=== PATIENT | female | born 1985 | race Caucasian/White ===

== ENCOUNTER 2020-02-06 11:38 | Inpatient (IN) | payer MEDICAID ==
[~2020-02-06] VITALS: Ht 167.6 cm; Wt 55.0 kg
[2020-02-06] MEDS ORDERED: POLYETHYLENE GLYCOL 17 GM PACKET PO PRN (12:00)
[2020-02-06] MEDS ORDERED: ACETAMINOPHEN 325 MG TABLET PO PRN (12:00)
[2020-02-06] MEDS ORDERED: NICOTINE 14MG/24 HR PATCH.TD24 TD SCH (12:00)
[2020-02-06] MEDS ORDERED: DOCUSATE 100 MG CAPSULE PO PRN (12:00)
[2020-02-06] MEDS ORDERED: ONDANSETRON ODT 4 MG PO PRN (12:00)
[2020-02-06 12:38] VITALS: BP 123/90
[2020-02-06] MEDS ORDERED: PLEASE ENTER ALLERGIES MC SCH (13:00)
[2020-02-06 14:21] VITALS: BP 123/90
[2020-02-06] MEDS ORDERED: NICOTINE 14MG/24 HR PATCH.TD24 ONE (16:18)
[2020-02-06] MEDS: GABAPENTIN 300 MG CAPSULE PO SCH ×2 (16:20→20:46)
[2020-02-06] MEDS: OXYcodone/APAP 7.5/325MG TABLET PO PRN ×3 (16:22→22:34)
[2020-02-06] MEDS ORDERED: GABAPENTIN 300 MG CAPSULE ONE (16:25)
[2020-02-06 16:26] LABS: FREE T4 (FREE THYROXINE) 1.06 ng/dL (0.76-1.46)
[2020-02-06 19:38] VITALS: BP 128/91
[2020-02-06] MEDS: LEVETIRACETAM 500 MG TABLET PO SCH (20:46)
[2020-02-06] MEDS: CYCLOBENZAPRINE 10 MG TABLET PO SCH (20:46)
[2020-02-06 23:47] LABS: MICROSCOPIC AUTO
[2020-02-07] MEDS: OXYcodone/APAP 7.5/325MG TABLET PO PRN ×3 (05:10→19:53)
[2020-02-07] MEDS: GABAPENTIN 300 MG CAPSULE PO SCH ×3 (05:10→20:45)
[2020-02-07 07:21] LABS: BASOPHILS # (AUTO) 0.02 x10^3/uL (0-0.1); BASOPHILS % (AUTO) 0 % (0-1); EOSINOPHILS # (AUTO) 0.14 x10^3/uL (0-0.4); EOSINOPHILS % (AUTO) 2 % (1-7); LYMPHOCYTES # (AUTO) 2.17 x10^3/uL (1-3.4); LYMPHOCYTES % (AUTO) 35 % (22-44); MD NO; MEAN CORPUSCULAR HEMOGLOBIN 29.8 pg (27.0-34.8); MEAN CORPUSCULAR HGB CONC 33.1 g/dL (32.4-35.8); MONOCYTES # (AUTO) 0.46 x10^3/uL (0.2-0.8); MONOCYTES % (AUTO) 7 % (2-9); NEUTROPHILS # (AUTO) 3.44 x10^3/uL (1.8-6.8); NEUTROPHILS % (AUTO) 55 % (42-75); PLATELET COUNT 180 x10^3/uL (130-400); RED BLOOD COUNT 4.87 x10^6/uL (3.82-5.3); RED CELL DISTRIBUTION WIDTH 12.3 % (9.6-15.2)
[2020-02-07 07:31] LABS: ALBUMIN 3.8 g/dL (3.4-5.0); ANION GAP 6 mmol/L (5-15); CALCIUM 8.6 mg/dL (8.5-10.1); CHLORIDE 108 mmol/L (98-107)
[2020-02-07 07:40] LABS: ALANINE AMINOTRANSFERASE 44 U/L (12-78); ALKALINE PHOSPHATASE 77 U/L (45-117); BILIRUBIN,TOTAL 0.9 mg/dL (0.2-1.0); CHOL/HDL RATIO 2.5; CHOLESTEROL, TOTAL 145 mg/dL (140-239); CREATININE 0.97 mg/dL (0.55-1.02); HDL CHOL % 39 % (28-40); HDL CHOLESTEROL (DIRECT) 57 mg/dL (40-60); LDL CHOLESTEROL,CALCULATED 40 mg/dL (54-169); LDL/HDL RATIO 0.7 (0.5-3.0); TOTAL PROTEIN 7.2 g/dL (6.4-8.2); TRIGLYCERIDES 239 mg/dL (50-200); VLDL CHOLESTEROL 48 mg/dL (0-25)
[2020-02-07 07:45] VITALS: BP 119/82
[2020-02-07] MEDS: CYCLOBENZAPRINE 10 MG TABLET PO SCH ×2 (08:27→20:45)
[2020-02-07] MEDS: LEVETIRACETAM 500 MG TABLET PO SCH ×2 (08:27→20:45)
[2020-02-07] MEDS: NICOTINE 14MG/24 HR PATCH.TD24 TD SCH (09:00)
[2020-02-07] MEDS ORDERED: POTASSIUM CHLORIDE 20 MEQ TAB.ER.PRT PO ONE (12:30)
[2020-02-07] MEDS: ELMIRON 100 MG HOMEMEDPO SCH ×2 (16:15→20:00)
[2020-02-07 19:53] VITALS: BP 135/88
[2020-02-07] MEDS: LORazepam 1MG TABLET PO PRN (19:53)
[2020-02-07] MEDS: ZOLPIDEM 5MG TABLET PO SCH (20:45)
[2020-02-08 07:33] VITALS: BP 102/70
[2020-02-08] MEDS: ELMIRON 100 MG HOMEMEDPO SCH ×3 (09:00→20:29)
[2020-02-08] MEDS: NICOTINE 14MG/24 HR PATCH.TD24 TD SCH (09:13)
[2020-02-08] MEDS: OXYcodone/APAP 7.5/325MG TABLET PO PRN ×3 (09:13→20:27)
[2020-02-08] MEDS: LEVETIRACETAM 500 MG TABLET PO SCH ×2 (09:14→20:27)
[2020-02-08] MEDS: LORazepam 1MG TABLET PO PRN (09:14)
[2020-02-08] MEDS: CYCLOBENZAPRINE 10 MG TABLET PO SCH ×2 (09:14→20:27)
[2020-02-08] MEDS ORDERED: BUPROPION 100 MG TABLET ONE (09:22)
[2020-02-08] MEDS: GABAPENTIN 300 MG CAPSULE PO SCH ×3 (09:28→20:27)
[2020-02-08] MEDS: BUPROPION SR 100 MG TABLET PO SCH ×2 (09:42→13:07)
[2020-02-08 19:54] VITALS: BP 129/88
[2020-02-08] MEDS: ZOLPIDEM 5MG TABLET PO SCH (20:28)
[2020-02-09] MEDS: OXYcodone/APAP 7.5/325MG TABLET PO PRN ×3 (03:43→20:06)
[2020-02-09] MEDS: GABAPENTIN 300 MG CAPSULE PO SCH ×3 (05:25→21:50)
[2020-02-09 07:15] VITALS: BP 122/82
[2020-02-09] MEDS: NICOTINE 14MG/24 HR PATCH.TD24 TD SCH (08:01)
[2020-02-09] MEDS: LEVETIRACETAM 500 MG TABLET PO SCH ×2 (08:02→20:43)
[2020-02-09] MEDS: CYCLOBENZAPRINE 10 MG TABLET PO SCH ×2 (08:02→20:42)
[2020-02-09] MEDS: BUPROPION SR 100 MG TABLET PO SCH ×2 (08:02→11:38)
[2020-02-09] MEDS: ELMIRON 100 MG HOMEMEDPO SCH ×3 (08:04→20:43)
[2020-02-09] MEDS: LORazepam 1MG TABLET PO PRN (11:51)
[2020-02-09 19:21] VITALS: BP 129/87
[2020-02-09] MEDS: ZOLPIDEM 5MG TABLET PO SCH (20:42)
[2020-02-10] MEDS: GABAPENTIN 300 MG CAPSULE PO SCH (06:11)
[2020-02-10] MEDS: OXYcodone/APAP 7.5/325MG TABLET PO PRN (06:13)
[2020-02-10 07:30] VITALS: BP 123/83
[2020-02-10] MEDS: BUPROPION SR 100 MG TABLET PO SCH (08:08)
[2020-02-10] MEDS: LEVETIRACETAM 500 MG TABLET PO SCH (08:08)
[2020-02-10] MEDS: CYCLOBENZAPRINE 10 MG TABLET PO SCH (08:08)
[2020-02-10] MEDS: ELMIRON 100 MG HOMEMEDPO SCH (08:09)
[2020-02-10] MEDS: NICOTINE 14MG/24 HR PATCH.TD24 TD SCH (08:09)
[2020-02-10] MEDS ORDERED: ELMIRON HOMEMEDPO (09:11)
[2020-02-10] MEDS ORDERED: CYCL-259 PO (09:11)
[2020-02-10] MEDS ORDERED: NICO-486 TD (09:11)
[2020-02-10] MEDS ORDERED: BUPR-173 PO (09:11)
[2020-02-10] MEDS ORDERED: GABA300C PO (09:11)
[2020-02-10] MEDS ORDERED: CLON0.1T22 PO (09:11)
[2020-02-10] MEDS ORDERED: LEVE500T53 PO (09:11)
[2020-02-10] MEDS ORDERED: ZOLP-413 PO (09:11)
== END 2020-02-10 09:45 | disposition home or self-care (01) | DRG 753 ==
LOC: 3E 12:36
PROVIDERS: ADMIT Psychiatry & Neurology Psychosomatic Medicine; ATTEND Psychiatry & Neurology Psychosomatic Medicine
DX: F31.30 Bipolar disorder, current episode depressed, mild or moderate severity, unspecified (principal); F10.20 Alcohol dependence, uncomplicated; F43.10 Post-traumatic stress disorder, unspecified; F90.9 Attention-deficit hyperactivity disorder, unspecified type; G40.909 Epilepsy, unspecified, not intractable, without status epilepticus; G47.00 Insomnia, unspecified; G89.29 Other chronic pain; M79.7 Fibromyalgia; N30.10 Interstitial cystitis (chronic) without hematuria; F11.20 Opioid dependence, uncomplicated; K21.9 Gastro-esophageal reflux disease without esophagitis; B96.20 Unspecified Escherichia coli [E. coli] as the cause of diseases classified elsewhere; F60.3 Borderline personality disorder; F17.210 Nicotine dependence, cigarettes, uncomplicated; F41.1 Generalized anxiety disorder; Z87.01 Personal history of pneumonia (recurrent); Z79.899 Other long term (current) drug therapy; Z90.710 Acquired absence of both cervix and uterus; Z90.89 Acquired absence of other organs; Z88.8 Allergy status to other drugs, medicaments and biological substances; Z68.1 Body mass index [BMI] 19.9 or less, adult; Z81.8 Family history of other mental and behavioral disorders; Y90.9 Presence of alcohol in blood, level not specified
CPT/HCPCS: 36415; 71045; 80053; 80061; 81001; 84132; 84439; 84443; 85025; 87077; 87086; 87186; 93005